=== PATIENT | male | born 1995 | race Two or more races ===

== ENCOUNTER 2023-12-11 18:06 | Inpatient (IN) | payer OTHER ==
[2023-12-11 18:26] VITALS: BMI 22.4
[2023-12-11] MEDS ORDERED: BENZONATATE 200 MG CAPSULE PO PRN (18:55)
[2023-12-11] MEDS ORDERED: P-EPHED 60MG/TRIPROLIDI 2.5MG TABLET PO PRN (18:55)
[2023-12-11] MEDS ORDERED: DOCUSATE SODIUM 100 MG CAPSULE (FP) PO PRN (18:55)
[2023-12-11] MEDS ORDERED: MAGNESIUM HYDROX 2400MG/30ML ORAL SUSPENSION 30 ML CUP PO PRN (18:55)
[2023-12-11] MEDS ORDERED: POLYETHYLENE GLYCOL (HEALTHYLAX) 3350 17 GM PACKET PO PRN (18:55)
[2023-12-11] MEDS ORDERED: guaiFENesin 600 MG TABLET.ER (FP) PO PRN (18:55)
[2023-12-11] MEDS ORDERED: BENZOCAINE/MENTHOL (CHLORASEPTIC ) LOZENGE MM PRN (18:55)
[2023-12-11] MEDS ORDERED: LOPERAMIDE HCL 2 MG CAPSULE PO PRN (18:55)
[2023-12-11] MEDS ORDERED: BENZOCAINE 20 % GEL TUBE MM PRN (18:57)
[2023-12-11] MEDS: MELATONIN 5 MG TABLETS PO SCH (21:21)
[2023-12-11] MEDS: PANTOPRAZOLE 20 MG TABLET PO SCH (21:21)
[2023-12-11] MEDS: THIAMINE HCL 100 MG TABLET (FP) PO SCH (21:21)
[2023-12-11] MEDS ORDERED: TUBERCULIN PPD 5 TU/0.1ML VIAL ID ONE (21:22)
[2023-12-11] MEDS: ACETAMINOPHEN 325 MG TABLET (FP) PO PRN (21:42)
[2023-12-11] MEDS: TUBERCULIN PPD 5 TU/0.1ML SYRINGE (IN PATIENT USE ONLY) ID ONE (22:38)
[2023-12-12] MEDS: MAG HYDROX/AL HYDROX/SIMETH 30 ML UNIT-DOSE CUP PO PRN (07:51)
[2023-12-12] MEDS: PRENATAL VITAMINS W/ FOLIC ACID TABLET (FP) PO SCH (09:45)
[2023-12-12 11:35] LABS: URINE APPEARANCE CLEAR; URINE BILIRUBIN NEGATIVE (NEGATIVE); URINE COLOR YELLOW; URINE GLUCOSE (UA) NEGATIVE (NEGATIVE); URINE KETONE NEGATIVE (NEGATIVE); URINE LEUK ESTERASE NEGATIVE (NEGATIVE); URINE NITRITE NEGATIVE (NEGATIVE); URINE PROTEIN NEGATIVE (NEGATIVE); URINE UROBILINOGEN 0.2 mg/dL (0.2-1.0)
[2023-12-12 11:40] LABS: HEMATOCRIT 38.4 % (35.4-49); HEMOGLOBIN 12.9 GM/dL (11.7-16.9); MCH 28.5 pg (25.7-33.7); MCHC 33.6 g/dl (32.0-35.9); MEAN CELL VOLUME 84.7 fl (80-96); MEAN PLT VOLUME 8.1 fl (7.5-11.1); PLATELET COUNT 520 10^3/uL (134-434); POTASSIUM 4.4 mmol/L (3.5-5.1); RBC 4.53 M/mm3 (4.00-5.60); RDW 15.2 % (11.9-15.9); WHITE BLOOD COUNT 10.7 K/mm3 (4.0-10.0)
[2023-12-12 11:47] LABS: ALBUMIN 2.9 g/dl (3.4-5.0); BLOOD UREA NITROGEN 18.8 mg/dL (7-18); CALCIUM 8.7 mg/dL (8.5-10.1)
[2023-12-12 11:50] LABS: CREATININE 0.8 mg/dL (0.55-1.3)
[2023-12-12 11:52] LABS: BILIRUBIN,TOTAL 0.2 mg/dL (0.2-1); TOT PROT 5.7 g/dl (6.4-8.2)
[2023-12-12 12:10] LABS: SYPHILIS W/ RPR CONF NON-REACTIVE (NONREACTIVE)
[2023-12-12 14:29] LABS: HIV INTERPRETATION NEGATIVE (NEGATIVE)
[2023-12-12] MEDS: DIVALPROEX SODIUM 250 MG TABLET E.C. PO SCH (22:03)
[2023-12-12] MEDS: OLANZapine 10 MG TABLET PO SCH (22:03)
[2023-12-12] MEDS: SUVOREXANT 10 MG TABLET PO PRN (22:07)
[2023-12-13] MEDS: hydrOXYzine PAMOATE 25 MG CAPSULE (FP) PO PRN (06:47)
[2023-12-13] MEDS: NAPROXEN 500 MG TABLET PO PRN (15:07)
[2023-12-16] MEDS: SUVOREXANT 10 MG TABLET PO PRN (21:01)
[2023-12-17] MEDS: SUVOREXANT 10 MG TABLET PO PRN (21:00)
[2023-12-18 06:29] VITALS: BP 128/69; PULSE 75; RESP 18; TEMP 97.5
== END 2023-12-18 09:24 | disposition home or self-care (01) | DRG 772 ==
LOC: YASAS 18:06 → Y3W 18:52
PROVIDERS: ADMIT Allergy & Immunology; ATTEND Psychiatry & Neurology Pain Medicine
PROC: HZ42ZZZ Group Counseling for Substance Abuse Treatment, Cognitive-Behavioral (ICD-10-PCS; principal; 2023-12-11)
DX: F10.20 Alcohol dependence, uncomplicated (principal); F15.20 Other stimulant dependence, uncomplicated; F12.20 Cannabis dependence, uncomplicated; F17.210 Nicotine dependence, cigarettes, uncomplicated; F25.9 Schizoaffective disorder, unspecified; F60.2 Antisocial personality disorder; G47.00 Insomnia, unspecified; K21.9 Gastro-esophageal reflux disease without esophagitis; K08.89 Other specified disorders of teeth and supporting structures; Z56.0 Unemployment, unspecified; Z59.00 Homelessness unspecified; Z88.0 Allergy status to penicillin; Z88.8 Allergy status to other drugs, medicaments and biological substances
CPT/HCPCS: 36415; 80053; 80164; 80305; 81003; 85027; 86780; 86803; 87389; 87811; 93005; 93010